=== PATIENT | male | born 1970 | race Caucasian/White ===

== ENCOUNTER 2016-09-18 23:20 | Emergency (ER) | payer SELFPAY ==
[2016-09-18 23:23] VITALS: BMI 35.9
[2016-09-18] MEDS ORDERED: CATAPRES TAB 0.1 MG PO ONE (23:37)
[2016-09-18] MEDS ORDERED: CATAPRES TAB 0.1 MG ONE (23:40)
[2016-09-19 00:04] LABS: BASOPHILS # (AUTO) 0.1 X10^3/uL (0.0-0.1); BASOPHILS % (AUTO) 0.9 % (0.2-1.0); EOSINOPHILS # (AUTO) 0.3 x10^3/uL (0.0-0.2); EOSINOPHILS % (AUTO) 3.8 % (0.9-2.9); HEMATOCRIT 44.6 % (42.0-54.0); HEMOGLOBIN 15.2 g/dL (13.5-18.0); LYMPHOCYTES # (AUTO) 3.6 X10^3/uL (1.3-2.9); LYMPHOCYTES % (AUTO) 46.3 % (21.0-51.0); MEAN CORPUSCULAR HEMOGLOBIN 27.6 pg (27.0-34.0); MEAN CORPUSCULAR HGB CONC 34.1 g/dL (33.0-35.0); MEAN PLATELET VOLUME 8.9 fL (7.4-11.0); MONOCYTES # (AUTO) 0.3 x10^3/uL (0.3-0.8); MONOCYTES % (AUTO) 4.5 % (0.0-13.0); NEUTROPHILS # (AUTO) 3.4 x10^3/uL (2.2-4.8); NEUTROPHILS % (AUTO) 44.5 % (42.0-75.0); PLATELET COUNT 224 X10^3/uL (150.0-450.0); RED CELL DISTRIBUTION WIDTH 13.9 % (11.6-16.5); WHITE BLOOD COUNT 7.8 X10^3/uL (3.6-10.0)
[2016-09-19 00:18] LABS: ALANINE AMINOTRANSFERASE 109 Units/L (12-78); ALKALINE PHOSPHATASE 64 Units/L (46-116); ASPARTATE AMINO TRANSFERASE 53 Units/L (15-37); BLOOD UREA NITROGEN 9 mg/dL (7-18); CALCIUM 8.8 mg/dL (8.5-10.1); CARBON DIOXIDE 28.2 mmol/L (21-32); CHLORIDE 102 mmol/L (98-107); COR NA(FOR HYPERGLY) 141 mmol/L (136-145); CREATININE 0.87 mg/dL (0.70-1.30); GLUCOSE 136 mg/dL (65-99); SODIUM 140 mmol/L (136-145); TOTAL PROTEIN 7.7 g/dL (6.4-8.2); eGFR BLACK RACES > 60 (>60); eGFR NON BLACK RACES > 60 (>60)
--- NOTE | 2016-09-19 00:28 | DR.GENAD ---
HPI - PCP Primary Care Physician: STEVEN - HPI Comment HPI Comment: HISTORY BELOW. - Complaint/Symptoms Chief Complaint Doctors Comments: ELEVATED BP. DIZZY, HEADACHE AND BLURRED VISION PRESENT. OUT OF HCTZ 25MG DAILY THAT HE TAKES WITH 40MG LISINOPRIL. IT APPEAR THAT LISINOPRIL IS NOT CONTROLLING BLOOD PRESSURE BY IT SELF. Chief Complaint:: PATIENT STATED HE HAS HAD HIGH BLOOD PRESSURE FOR SEVERAL DAYS. - Nurses notes reviewed Nurses Notes Review: Yes - Source History Provided: Patient - Mode of Arrival Mode of Arrival: Ambulatory - Timing Onset of Chief Complaint: 09/15/16 Came on: Gradually - Duration Duration: Constant Duration: Days - Severity Severity: Moderate PMH - PMH Past Medical History: Yes Past Medical History: Diabetes, Hypertension Past Surgical History: Yes Surgical History: Ortho Surgery - Family History History of Family Medical Conditions: Yes Family Medical History: Diabetes Mellitus, Heart Failure, Hypertension - Social History Does patient currently use any type of tobacco product: No Have you used tobacco products in the last 12 months: No Type of Tobacco Use: None Does any household member use tobacco: No Alcohol Use: None Do you use any recreational Drugs:: No Lives With: Family Lives Where: Home - infectious screening In the last 2 months have you had wt loss of >10#?: NO Have you had fever, night sweats or hemotysis?: No Have you traveled outside the country in the last 6 months?: No Isolation: Standard ROS - Review of Systems Constitutional: Weakness, Fatigue. negative: Chills, Fever Eyes: Blurred Vision. negative: Eye Pain, Discharge ENTM: No Symptoms Reported. negative: Ear Pain, Nose Discharge, Nose Congestion , Throat Pain Respiratoy: No Symptoms Reported. negative: Productive Cough, Non-Productive Cough, Short of Breath, Wheezing, Hemoptysis Cardiovascular: No Symptoms Reported. negative: Chest Pain, Edema, Palpitations Gastrointestinal/Abdominal: No Symptoms Reported. negative: Abdominal Pain, Constipation, Diarrhea, Nausea, Vomiting Genitourinary: No Symptoms Reported. negative: Dysuria, Frequency, Hematuria Neurological: Headache, Weakness, Dizziness Musculoskeletal: Muscle Pain Integumentary: Change in Color Hematologic/Lymphatic: No Symptoms Reported Endocrine: No Symptoms Reported All Other Systems: Reviewed and Negative PE - Vital Signs Vitals: Temperature 98.6 F Respiratory Rate 16 Blood Pressure [Right Arm] 130/75 Blood Pressure 112/80 - General Limitations: No Limitations General Appearance: Alert - Head Head Exam: Normal Inspection - Eyes Eye exam: Normal Appearance - ENT ENT Exam: Normal External Ear Exam External Ear Exam: Normal External Inspection TM/Canal Exam: Bilateral Normal Nose Exam: Normal Nose Exam Mouth Exam: Normal Inspection Throat Exam: Normal Inspection - Neck Neck Exam: Trachea Midline - Chest Chest Inspection: Symmetric Chest Wall Rise - Respiratory Respiratory Exam: Normal Lung Sounds Bilat Respiratory Exam: Bilateral Clear to Auscultation - Cardiovascular Cardiovascular Exam: Regular Rate, Normal Rhythm, Normal Heart Sounds - Abdominal Exam Abdominal Exam: Normal Bowel Sounds, Soft. negative: Tenderness - Extremities Extremities Exam: Normal Inspection. negative: Tenderness, Edema, Calf Tenderness - Back Back Exam: Normal Inspection - Neurologic Neurological Exam: Alert, Oriented X3, CN II-XII Intact. negative: Motor Sensory Deficit - Psychiatric Psychiatric Exam: Anxious - Skin Skin Exam: Erythema MDM - Differential Diagnosis Differential Diagnosis: HYPERTENSION Course - Treatment Treatment: BP DECREASING WITH PO 0.1MG CLONIDINE. - Reevaluation 1st: Improved - Education/Counseling Education/Counseling: Patient, Education Educated On: Treatment, Diagnosis, Needs for Follow Up ROR - Labs Reviewed Laboratory Results Reviewed?: Yes Result Diagrams: 09/18/16 23:54 09/18/16 23:54 Laboratory: WBC 7.8 X10^3/uL (3.6-10.0) 09/18/16 23:54 RBC 5.50 X10^6/uL (4.7-6.0) 09/18/16 23:54 Hgb 15.2 g/dL (13.5-18.0) 09/18/16 23:54 Hct 44.6 % (42.0-54.0) 09/18/16 23:54 MCV 81.0 fL (80.0-100.0) 09/18/16 23:54 MCH 27.6 pg (27.0-34.0) 09/18/16 23:54 MCHC 34.1 g/dL (33.0-35.0) 09/18/16 23:54 RDW 13.9 % (11.6-16.5) 09/18/16 23:54 Plt Count 224 X10^3/uL (150.0-450.0) 09/18/16 23:54 MPV 8.9 fL (7.4-11.0) 09/18/16 23:54 Neut % 44.5 % (42.0-75.0) 09/18/16 23:54 Lymph % 46.3 % (21.0-51.0) 09/18/16 23:54 [place] % 4.5 % (0.0-13.0) 09/18/16 23:54 Eos % 3.8 % (0.9-2.9) H 09/18/16 23:54 Baso % 0.9 % (0.2-1.0) 09/18/16 23:54 Neut # 3.4 x10^3/uL (2.2-4.8) 09/18/16 23:54 Lymph # 3.6 X10^3/uL (1.3-2.9) H 09/18/16 23:54 [place] # 0.3 x10^3/uL (0.3-0.8) 09/18/16 23:54 Eos # 0.3 x10^3/uL (0.0-0.2) H 09/18/16 23:54 Baso # 0.1 X10^3/uL (0.0-0.1) 09/18/16 23:54 Absolute Nucleated RBC 0.1 /100WBC 09/18/16 23:54 Sodium 140 mmol/L (136-145) 09/18/16 23:54 Corrected Sodium 141 mmol/L (136-145) 09/18/16 23:54 Potassium 3.5 mmol/L (3.5-5.1) 09/18/16 23:54 Chloride 102 mmol/L (98-107) 09/18/16 23:54 Carbon Dioxide 28.2 mmol/L (21-32) 09/18/16 23:54 BUN 9 mg/dL (7-18) 09/18/16 23:54 Creatinine 0.87 mg/dL (0.70-1.30) 09/18/16 23:54 Est GFR (MDRD) Af Amer > 60 (>60) 09/18/16 23:54 Est GFR (MDRD) Non-Af > 60 (>60) 09/18/16 23:54 Glucose 136 mg/dL (65-99) H 09/18/16 23:54 Calcium 8.8 mg/dL (8.5-10.1) 09/18/16 23:54 Corrected Calcium TNP 09/18/16 23:54 Total Bilirubin 0.30 mg/dL (0.2-1.0) 09/18/16 23:54 AST 53 Units/L (15-37) H 09/18/16 23:54 ALT 109 Units/L (12-78) H 09/18/16 23:54 Alkaline Phosphatase 64 Units/L (46-116) 09/18/16 23:54 Total Protein 7.7 g/dL (6.4-8.2) 09/18/16 23:54 Albumin 4.0 g/dL (3.4-5.0) 09/18/16 23:54 Globulin 3.7 g/dL (2.5-4.5) 09/18/16 23:54 Albumin/Globulin Ratio 1.1 Ratio (1.1-2.1) 09/18/16 23:54 - Diagnosis Discharge Problem: Hypertension Qualifiers: Hypertension type: essential hypertension Qualified Code(s): I10 - Essential ( primary) hypertension - Discharge Plan Disposition: 01 HOME, SELF-CARE Condition: Stable Prescriptions: Hydrochlorothiazide [Hydrochlorothiazide 25 mg Tab] 25 mg PO QAM #10 tab - Follow ups/Referrals Follow ups/Referrals: LILO ENGLAND [STAFF PHYSICIAN] - 2 days NFD,None [Primary Care Provider] - 2 days - Instructions Instructions: Hypertension Additional Instructions: RETURN TO ED IF WORSE. CONTINUE WITH LISINOPRIL 40MG DAILY YOU HAVE AT HOME. CHECK BP DAILY, CHART AND TAKE TO PCP.
[2016-09-19 01:27] VITALS: BP 130/75
== END 2016-09-19 01:42 | disposition home or self-care (01) ==
LOC: ER 23:28
DX: I10 Essential (primary) hypertension (principal)
CPT/HCPCS: 36415; 80053; 85025; 99282; 99283